=== PATIENT | male | born 1990 ===

== ENCOUNTER 2017-08-05 13:24 | Emergency (ER) | payer OTHER ==
[2017-08-05 13:31] VITALS: BP 128/69; PULSE 66; RESP 16; TEMP 97.9; O2SAT 100
[2017-08-05] MEDS ORDERED: Lidocaine 2% Inj (20ml) INFIL ONE (14:01)
[2017-08-05] MEDS ORDERED: Lidocaine 2% Inj (20ml) ONE (14:06)
--- NOTE | 2017-08-05 14:09 | RAD ---
PROCEDURE: Left Hand Radiographs. HISTORY: Injury to 4th and 5th fingers COMPARISON: None. FINDINGS: BONES: Current study reveals a fracture (apparently comminuted) traversing the distal tuft distal phalanx 4th finger. . No other fractures are identified. JOINTS: Joint spaces preserved. No significant osteoarthritic changes. SOFT TISSUES: Normal. OTHER FINDINGS: None. IMPRESSION: There is a fracture (apparently comminuted) traversing the distal tuft distal phalanx 4th finger.
--- NOTE | 2017-08-05 14:55 | C.PDOC ---
History Of Present Illness Pt states that a door slammed on his left hand while at work. Time Seen by Provider: 08/05/17 13:37 Chief Complaint (Nursing): Finger,Hand,&Wrist History Per: Patient Onset/Duration Of Symptoms: Sudden Onset (Just [employer]) Current Symptoms Are (Timing): Still Present Quality: "Pain" Severity: Moderate Hands/Wrist (Pic): 1 - contusion, subungal hematoma 2 - contusion Additional History Per: Prior Records Past Medical History Reviewed: Historical Data, Nursing Documentation, Vital Signs Vital Signs: Last Vital Signs Temp 97.9 F 08/05/17 13:29 Pulse 66 08/05/17 13:29 Resp 16 08/05/17 13:29 BP 128/69 08/05/17 13:29 Pulse Ox 100 08/05/17 14:59 - Medical History PMH: No Chronic Diseases Surgical History: No Surg Hx Family History: States: Unknown Family Hx - Social History Hx Alcohol Use: No Hx Substance Use: No - Immunization History Hx Tetanus Toxoid Vaccination: No Hx Influenza Vaccination: No Hx Pneumococcal Vaccination: No Review Of Systems Except As Marked, All Systems Reviewed And Found Negative. Constitutional: Negative for: Fever, Weakness Cardiovascular: Negative for: Chest Pain Respiratory: Negative for: Shortness of Breath Gastrointestinal: Negative for: Vomiting, Abdominal Pain Musculoskeletal: Positive for: Hand Pain (left). Negative for: Neck Pain, Arm Pain Neurological: Negative for: Weakness, Numbness Physical Exam - Physical Exam Appears: Non-toxic, No Acute Distress Skin: Warm, Dry Head: Atraumatic, Normacephalic Eye(s): bilateral: Normal Inspection, PERRL, EOMI Neck: Normal ROM, Supple Extremity: Normal ROM, Tenderness (distal left 4th and 5th fingers), Swelling ( distal left 4th finger) Pulses: Left Radial: Normal Neurological/Psych: Oriented x3, Normal Motor, Normal Sensation ED Course And Treatment O2 Sat by Pulse Oximetry: 100 Pulse Ox Interpretation: Normal - Other Rad Left hand x-rays X-Ray: Viewed By Me, Read By Radiologist Interpretation: IMPRESSION: There is a fracture (apparently comminuted) traversing the distal tuft distal phalanx 4th finger. Progress Note: Subungal hematoma drained after digital block with 2% Lidocaine. Left 4th finger was then placed in finger splint. Reassessment Condition: Improved Disposition Counseled Patient/Family Regarding: Studies Performed, Diagnosis, Need For Followup, Rx Given - Disposition Referrals: Yordy Agarwal MD [Staff Provider] - Disposition: HOME/ ROUTINE Disposition Time: 15:00 Condition: IMPROVED Additional Instructions: Keep your finger in the splint provided. Follow up with the Hand specialist within 1 week for further evaluation and treatment. Return to the ER if you develop fever, pus drainage, worsening of symptoms or if you have any other concerns. Prescriptions: Ibuprofen [Motrin Tab] 600 mg PO TID PRN #30 tab PRN Reason: Pain, Moderate (4-7) Instructions: Finger Fracture (ED), Subungual Hematoma (ED) Forms: [facility] (Danish) - Clinical Impression Clinical Impression: Closed fracture of tuft of distal phalanx of finger, Subungual hematoma of left ring finger Procedures - Nail Trephination Consent Obtained: Verbal Consent Location (Finger): Left, Ring Sterile Prep: Betadine Method of Drainage: Needle Procdure Successful: Yes Patient Tolerated Procedure: Well
== END 2017-08-05 15:15 | disposition home or self-care (01) ==
LOC: C.ER 13:24
DX: S62.635A Displaced fracture of distal phalanx of left ring finger, initial encounter for closed fracture (principal); S60.142A Contusion of left ring finger with damage to nail, initial encounter; W23.0XXA Caught, crushed, jammed, or pinched between moving objects, initial encounter; Y92.89 Other specified places as the place of occurrence of the external cause; Y99.0 Civilian activity done for income or pay